=== PATIENT | female | born 1945 | race Caucasian/White ===

== ENCOUNTER 2019-11-16 08:41 | Emergency (ER) | payer MEDICARE, SELFPAY | END 2019-11-16 09:25 | disposition home or self-care (01) | PROVIDERS: Emergency Provider Physician Assistant; Family Provider Nurse Practitioner; Visit Provider Physician Assistant | DX: H57.11 Ocular pain, right eye (principal); J44.9 Chronic obstructive pulmonary disease, unspecified; I25.10 Atherosclerotic heart disease of native coronary artery without angina pectoris; I10 Essential (primary) hypertension; H35.30 Unspecified macular degeneration; Z88.5 Allergy status to narcotic agent; Z87.891 Personal history of nicotine dependence | CPT/HCPCS: 99283 ==

== ENCOUNTER 2019-12-08 15:38 | Outpatient (CLI) | payer MEDICARE, SELFPAY ==
--- NOTE | 2019-12-08 | CT_ITS ---
WS: [id number] CT ABDOMEN AND PELVIS NONCONTRAST HISTORY: COLON CA/DIARRHEA/ABD PAIN TECHNIQUE: Imaging performed through the abdomen and pelvis. Coronal and sagittal reformats are submi tted. All CT scans at [facility] use at least one of these dose optimization techniques: automated exposure control; mA and/or kV adjustment per patient size (includes targeted exams where d ose is matched to clinical indication); or iterative reconstruction. DLP: 735.21 mGy.cm COMPARISON: 05/29/2016 Lower thorax: Subsegmental atelectasis at the lingula. No pulmonary nodules at the lung bases. Modera te size hiatal hernia contains oral contrast. Liver: Decreased attenuation throughout the liver. Similar to the prior study. Without IV contrast ca nnot exclude early metastatic lesions. No bile duct dilatation. Gallbladder: Prior cholecystectomy. Pancreas: Normal. Spleen: Normal size with granulomata. Adrenal glands: Normal. Right kidney: Mild perinephric stranding. No obstruction or mass. Left kidney: Mild perinephric stranding with no obstruction or mass. Moderate atherosclerosis abdominal aorta. Mild ectasia with no aneurysm. No free fluid, intraperitoneal air or significant lymphadenopathy. GI tract: Moderate fecal retention throughout the GI tract. Postsurgical clips near the rectosigmoid junction. No recurrent mass or obstruction. No adenopathy. The appendix is not definitely identified. Abdominal wall: Intact. Pelvis: No free fluid or adenopathy. Negative urinary bladder. Osseous structures: 3 mm anterolisthesis of L4. Degenerative scoliosis in the lumbar spine. Advanced degenerative disc disease at T12-L1. CT/CT abdomen pelvis wo con [id number] IMPRESSION: 1. No evidence for metastatic disease throughout the abdomen or pelvis. Sensit ivity of this examination is limited without IV contrast. 2. Mild heterogeneity within the liver is probably related to hepatic steatosi s. No discrete lesions are identified. For further evaluation follow-up liver u ltrasound may be helpful for additional evaluation. 3. Prior cholecystectomy. 4. Constipation.
[2019-12-08] MEDS: iohexol 350 mg/mL 100 mL Btl 20 ML IV (18:15)
== END 2019-12-08 15:39 | disposition home or self-care (01) ==
LOC: RAD 15:48
PROVIDERS: Family Provider Nurse Practitioner; PCP Nurse Practitioner Family; Visit Provider Nurse Practitioner Family
DX: C18.9 Malignant neoplasm of colon, unspecified (principal); R19.7 Diarrhea, unspecified; R10.9 Unspecified abdominal pain; K59.00 Constipation, unspecified; Z90.49 Acquired absence of other specified parts of digestive tract
CPT/HCPCS: 74176

== ENCOUNTER 2020-01-20 08:45 | Outpatient (CLI) | payer MEDICARE, SELFPAY ==
--- NOTE | 2020-01-20 14:39 | ONC FU_ITS ---
Dr. Yeager follow up note Patient: Gladys Cannon Unit #: [id number]: 1945 Dicatated By: Angel Yeager M.D.Date of Visit:Jan 20, 2020 Onc Med Follow-up/Prog Note History of Present Illness: This is a 74-year-old woman with a history of adenocarcinoma of the rectosigmoid colon, stage IIIB (T1, N1, M0) She had presented with rectal bleeding and was diagnosed with stage IIIB, pT1, N1, M0 adenocarcinoma of the rectosigmoid colon in April of 2010, partially obstructing. She was started on neoadjuvant FOLFOX chemotherapy, followed by an attempted concurrent chemoradiation with infusional 5-FU on August 2010. She was not able to tolerate a concurrent regimen, and the chemotherapy was discontinued. The radiation required interruptions and was eventually completed in September of 2010. She then went on to completed 6 cycles of adjuvant FOLFOX chemotherapy. Her treatment was delivered in [place], under the care of Dr. Tovar. Her last followup there was in June of 2011; she had no evidence of disease. The follow up colonoscopy in April of 2011 was unremarkable, and repeat colonoscopy was suggested in 3 years. She moved to [facility] and established care on 10/18/11. A re-staging CT of the chest abdomen and pelvis on 11/05/11 showed no evidence of metastatic disease. Her CEA measured 1.6. She has remained on surveillance protocol. Her other medical illnesses include hypertension, dyslipidemia, and coronary artery disease. She has had previous angioplasty/stent placement. She also is known to have obstructive sleep apnea, for which she is on CPAP. She does have a history of smoking up to a pack of cigarettes daily, but she has quit off and on. Her most recent surveillance colonoscopy was in January 2014. There were no abnormalities noted. Her surveillance CT scan in 2014 and again 2015 , showed no evidence of recurrence/progression. She underwent laparoscopic cholecystectomy in February 2016. Came for follow-up, denies any specific complaints now, no fever or chills, no nausea vomiting or diarrhea constipation but As per patient she developed left flank pain in mid November 2019, pain last 3 days and then resolve on its own, denies any melena or hematochezia denies any hematuria denies any jaundice denies any history of trauma denies any nausea vomiting underwent CT scan of abdomen pelvis on 12/08/2019 which showed no evidence of metastatic disease throughout the abdomen or pelvis. Sensitivity of examination is limited without IV contrast. Mild heterogeneity within the liver is probably related to hepatic steatosis no discrete lesions are identified and similar to the prior study done on 05/29/2016 but without IV contrast early metastatic disease cannot be ruled out. Medications: Albuterol Sulfate 1 puff(s) (of (2.5 mg/3ml) 0.083%) Nebulization solution Inhalation PRN, Aspirin 1 (81 mg) Tablet Oral daily, Ergocalciferol 50,000 Units (of 2000 Units) Tablet Oral daily, Eye Vitamins 1 Capsule Oral daily, Famotidine 1 Tablet (of 10 mg) Oral daily, hydroCHLOROthiazide 1 Tablet (of 25 mg) Oral daily, Losartan Potassium 1 Tablet (of 100 mg) Oral daily, Metoprolol Tartrate 1 (25 mg) Tablet Oral daily, Pantoprazole Sodium 1 Tablet (of 40 mg) Tablet, enteric coated Oral daily, Simvastatin 1 (40 mg) Tablet Oral daily, Sucralfate 1 Tablet (of 1 g) Oral daily, traMADol HCl 0.5 - 1 Tablet (of 50 mg) Oral daily PRN Allergies: codeine Review of Systems: Constitutional - Energy level is fair. Appetite is good and weight is stable. No fever, chills, hot flashes, or night sweats, ENMT - No sinus congestion/drainage. No mouth sores. No sore throat or difficulty swallowing, Hematologic/Lymphatic - Patient reports bruising easily, Respiratory - She has shortness of breath with exertion, no cough. No pleuritic pain or hemoptysis, Cardiovascular - No angina pain. No palpitations, Gastrointestinal - No nausea or vomiting. No heartburn or acid reflux. Patient reports alternating constipation and diarrhea. No blood in the stool or black stools, Genitourinary (F) - No dysuria or hematuria. No urinary frequency. No urgency or incontinence, Musculoskeletal - She has pain in her back at times, Integumentary - No chronic rashes, ulcerations or skin changes, Neurologic - No headache or dizziness. No numbness/paresthesias or other focal neurologic symptoms, Psychiatric - No anxiety or depression. No insomnia. Vital Signs: Performed on Jan 20, 2020 09:40 Height - 67.00 in Weight - 181.2 lbs (LOW) BSA - 1.94 sq.m BMI - 28.38 Temperature - 97.8 F (LOW) Pulse - 66 /min Respiration - 18 /min BP - 154/78 mm(hg) (HIGH) O2 Sat - 97 % Pain - 0 Performance Status: 0 - Fully active, able to carry on all predisease activities without restrictions. (ECOG) Physical Examination: ENMT - No oral exudates, ulcers, masses, thrush or mucositis. Oropharynx clear. Tongue normal, Hematologic/Lymphatic - No petechiae or purpura. No tender or palpable lymph nodes in the cervical, supraclavicular, axillary or inguinal area, Respiratory - Lungs are clear to auscultation without rhonchi or wheezing, Abdomen - Non-tender, non-distended, Good bowel sounds. No guarding or rebound tenderness. No pulsatile masses, Extremities - no edema. Lab/Imaging: Most recent lab results are not available for this patient. Impression: 1. The patient has a history of adenocarcinoma of rectosigmoid colon, stage IIIB (pT1, N1, M0), diagnosed in April of 2010. She underwent neoadjuvant FOLFOX chemotherapy, followed by attempted concurrent chemoradiation which she was not able to tolerate. She did complete radiation therapy in September 2010, followed by adjuvant chemotherapy with FOLFOX, which she completed in December 2010. She has remained on observation since then, thus far with no evidence of recurrence. Her other medical illnesses include: 2. Hypertension. 3. Dyslipidemia. 4. Coronary artery disease. 5. Obstructive sleep apnea. 6. Nicotine dependence (cigarettes). 7. constipation ? anastamosis stricture or habitual Plan: Discussed with patient regarding her CT scan of abdomen pelvis done on 12/08/2019 which showed decreased attenuation throughout the liver. Similar to prior study done on 05/29/2016. Without IV contrast cannot exclude early metastatic disease. Patient has no signs symptoms suggestive of recurrence of disease except one episode left flank pain which resolved on its own within 3 days. No evidence of melena or hematochezia. Her CT scan shows decreased attenuation throughout the liver, which could be due to hepatic steatosis but radiologist could not exclude early metastatic disease as IV contrast was not used. At this point we'll consider CT PET scan to rule out recurrence of disease and the patient will return to clinic after CT PET scan with CBC CMP and CEA. Signed By: Angel Yeager M.D. <<Signature on File>>
== END 2020-01-20 08:46 | disposition home or self-care (01) ==
LOC: ONCMED 08:47
PROVIDERS: Family Provider Nurse Practitioner; PCP Nurse Practitioner Family; Visit Provider Internal Medicine Hematology & Oncology
DX: Z08 Encounter for follow-up examination after completed treatment for malignant neoplasm (principal); Z85.038 Personal history of other malignant neoplasm of large intestine; F17.210 Nicotine dependence, cigarettes, uncomplicated; I10 Essential (primary) hypertension; E78.5 Hyperlipidemia, unspecified; I25.10 Atherosclerotic heart disease of native coronary artery without angina pectoris; G47.33 Obstructive sleep apnea (adult) (pediatric); Z79.51 Long term (current) use of inhaled steroids; Z79.891 Long term (current) use of opiate analgesic; Z95.5 Presence of coronary angioplasty implant and graft; Z92.21 Personal history of antineoplastic chemotherapy; Z92.3 Personal history of irradiation
CPT/HCPCS: G0463

== ENCOUNTER 2020-02-15 10:30 | Outpatient (RCR) | payer MEDICARE, SELFPAY ==
[2020-02-15 18:24] LABS: Alanine Aminotransferase 11 U/L (0-33); Albumin Level 4.2 g/dL (3.5-5.2); Alkaline Phosphatase 134 IU/L (35-105); Anion Gap 18.5 (5-19); Aspartate Amino Transferase 19 U/L (0-32); Blood Urea Nitrogen 14 mg/dL (8-23); Carbon Dioxide 30 mmol/L (22-29); Chloride 97 mmol/L (98-107); Globulin 2.6 g/dL (1.3-4.6); Glucose 67 mg/dL (65-115); Osmolality Calculated 288 mOsm/kg (285-295); Potassium 3.5 mmol/L (3.5-5.1); Sodium 142 mmol/L (136-145); Total Bilirubin 0.3 mg/dL (0.15-1.2); Total Protein 6.8 g/dL (6.6-8.7)
[2020-02-15 18:26] LABS: Basophils % 0.3 %; Eosinophils # 0.3 10^3/uL (0.0-0.8); Eosinophils % 4.2 %; Hematocrit 37.3 % (37.0-47.0); Lymphocytes # 1.6 10^3/uL (0.8-4.8); Lymphocytes % 20.5 %; Mean Corpuscular HGB Conc 32.2 g/dL (30.0-36.0); Mean Corpuscular Volume 93.3 fL (81-99); Mean Platelet Volume 9.9 fL (7.4-10.4); Monocytes # 0.8 10^3/uL (0.2-0.9); Monocytes % 9.7 %; Neutrophils # 5.1 10^3/uL (1.8-7.7); Neutrophils % 64.9 %; Nucleated Red Blood Cells % 0 %; Platelet Count 335 10^3/cmm (130-400); Red Cell Distribution Width 11.9 % (12.1-15.1); White Blood Count 7.9 10^3/uL (4.0-10.0)
== END 2020-02-16 23:59 | disposition home or self-care (01) ==
LOC: ONCMED 10:30
PROVIDERS: Family Provider Nurse Practitioner; PCP Nurse Practitioner Family; Visit Provider Internal Medicine Hematology & Oncology
DX: C18.7 Malignant neoplasm of sigmoid colon (principal)
CPT/HCPCS: 36415; 80053; 85025

== ENCOUNTER 2020-02-16 08:46 | Outpatient (CLI) | payer MEDICARE, SELFPAY ==
--- NOTE | 2020-02-16 09:02 | CT_ITS ---
WS: [id number] CT ABDOMEN PELVIS TECHNIQUE: Contrast-enhanced CT of the abdomen and pelvis with coronal and sagittal reformatted image s. CLINICAL INFORMATION: MALIGNANT NEOPLASM OF SIGMOID COLON COMPARISON: None. DLP: 1129.[address] scans at [facility] use at least one of these dose optimization techniques: automat ed exposure control; mA and/or kV adjustment per patient size (includes targeted exams where dose is matched to clinical indication); or iterative reconstruction. FINDINGS: Diffuse fatty infiltration of the liver. Prior cholecystectomy. Normal portal vein and splenic vein. Small esophageal hiatal hernia. Lung bases are well aerated. Normal adrenal glands. Normal renal pare nchymal enhancement. No hydronephrosis. No obstructing renal or ureteral calculi. Mild fatty atrophy of the pancreas. Splenic granulomas. Normal caliber abdominal aorta. Aortic calcif ication. No evidence of small or large bowel obstruction. Fecal retention right colon. No abdominal o r pelvic lymphadenopathy. Surgical clips left groin. Slight anterolisthesis L4 on L5. No evidence of metastatic disease in the abdomen or pelvis. CT/CT abdomen pelvis w con* [id number] IMPRESSION: 1. No evidence of metastatic disease in the abdomen or pelvis. 2. No abdominal or pelvic lymphadenopathy. 3. Diffuse fatty infiltration of the liver. 4. Cholecystectomy. 5. Mild right colon and transverse colon constipation unchanged.
--- NOTE | 2020-02-16 09:02 | XR_ITS ---
WS: [id number] PROCEDURE: XR chest 2V* [id number] CLINICAL INFORMATION: FOLLOW UP/MALIGNANT NEOPLASM OF SIGMOID COLON COMPARISON: December 03, 2018 FINDINGS: Heart: Normal cardiac silhouette. Aortic calcification. Lungs: Chronic emphysematous changes. Calcified granuloma right lower lobe. No focal pneumonia. Bones: Mild thoracic curve convex right. XR/XR chest 2V* [id number] IMPRESSION: 1. Chronic emphysematous changes with prominent calcified granuloma right midl magalys. 2. No acute pulmonary infiltrates. 3. No focal pneumonia.
[2020-02-16] MEDS: iohexol 300 mg/mL 50 mL Btl PO (10:23)
[2020-02-16] MEDS: iodixanol 320 mg/mL 100mL Btl IV (10:55)
== END 2020-02-16 08:47 | disposition home or self-care (01) ==
LOC: RADWPI 08:50 → ONCMED 09:52
PROVIDERS: Family Provider Nurse Practitioner; PCP Nurse Practitioner Family; Visit Provider Internal Medicine Hematology & Oncology
DX: C18.7 Malignant neoplasm of sigmoid colon (principal); K76.0 Fatty (change of) liver, not elsewhere classified; Z90.49 Acquired absence of other specified parts of digestive tract
CPT/HCPCS: 36415; 71046; 74177; Q9967

== ENCOUNTER 2020-04-21 14:32 | Outpatient (CLI) | payer MEDICARE, SELFPAY ==
--- NOTE | 2020-04-21 14:44 | USCV_ITS ---
Gladys Cannon Age: 74 Gender: F : 1945 Exam Date: 04/21/2020 15:04 Ordering Phys: Randell Kwan APN Technologist: Mechelle Carlson Exam Location: [facility] [place] Indication: PAIN HISTORY: Lower extremity pain. PROCEDURES: Venous duplex imaging was performed in only the right lower extremity. The following venous structures were evaluated: common femoral vein, profunda vein, proximal portion of the greater saphenous vein, superficial femoral vein, and the popliteal vein. In addition, the posterior tibial and peroneal trunk were evaluated. Serial compression, augmentation maneuvers, and spectral Doppler flow evaluation were performed. FINDINGS: Normal 2-D Doppler and augmentation and compressibility throughout the lower extremity venous structures. Additional imaging through the proximal calf veins also reveals no thrombus. Limited evaluation of the greater saphenous vein is patent with no thrombus.. CONCLUSIONS No evidence of DVT in the above-mentioned identifiable veins. Dr Paula Hurst MD [facility] (Electronically Signed) Final Date: 21 April 2020 18:42 S
== END 2020-04-21 14:33 | disposition home or self-care (01) ==
LOC: RAD 14:36
PROVIDERS: Family Provider Nurse Practitioner; PCP Nurse Practitioner Family; Visit Provider Nurse Practitioner Family
DX: M79.604 Pain in right leg (principal)
CPT/HCPCS: 93971

== ENCOUNTER 2020-05-09 13:08 | Outpatient (CLI) | payer MEDICARE, SELFPAY ==
--- NOTE | 2020-05-09 13:13 | MR_ITS ---
WS: [id number] MRI RIGHT KNEE HISTORY: RT KNEE PAIN COMPARISON: None available. Anterior cruciate ligament: Intact. Posterior cruciate ligament: Intact. Medial collateral ligament: Intact. Posterior lateral corner structures: Intact. Medial menisci: Abnormal signal in the posterior horn. Horizontal signal does appear to contact the f ree edge. The anterior horn is intact. Lateral meniscus: Intact. Normal signal, size and shape. Extensor mechanism: Distal quadriceps tendon and patellar tendons are intact. Fluid and soft tissue: Moderate-sized suprapatellar effusion. There is mild soft tissue edema surroun ding the knee. No Zazueta's cyst. Increase fluid near the fibular head surrounding the popliteus tendon . Osseous and articular structures: Patellofemoral compartment: Normal. Medial compartment: Moderate narrowing of the medial compartment. Loss of cartilage over the weightbe aring surface of the femoral condyle. There is diffuse mild thinning of the cartilage. Lateral compartment: Moderate narrowing of the lateral compartment with loss of cartilage. There is a small amount of marrow edema involving the lateral tibial plateau with subchondral cystic change. MR/MR knee RT wo con* [id number] IMPRESSION: 1. Moderate internal derangement lateral compartment with loss of cartilage an d subchondral cystic changes. 2. Horizontal tear posterior horn medial meniscus. 3. Moderate internal degenerative changes in the medial compartment, to a less er extent in the lateral compartment. 4. Fluid along the popliteus tendon sheath near the fibular head. Tendinopathy versus ganglion. 5. Moderate suprapatellar effusion.
== END 2020-05-09 13:09 | disposition home or self-care (01) ==
LOC: RADSHAW 13:12
PROVIDERS: PCP Nurse Practitioner Family; Visit Provider Nurse Practitioner Family
DX: M19.90 Unspecified osteoarthritis, unspecified site (principal); S83.241A Other tear of medial meniscus, current injury, right knee, initial encounter; X58.XXXA Exposure to other specified factors, initial encounter; M25.461 Effusion, right knee
CPT/HCPCS: 73721

== ENCOUNTER → 2020-05-24 11:56 | Outpatient (BNVA) | payer MEDICARE, SELFPAY | PROVIDERS: PCP Nurse Practitioner Family; Referring Provider Nurse Practitioner Family; Visit Provider Orthopaedic Surgery | DX: M25.561 Pain in right knee (principal); M25.562 Pain in left knee | CPT/HCPCS: 73560; 73565 ==

== ENCOUNTER 2020-07-04 13:01 | Outpatient (CLI) | payer MEDICARE, SELFPAY ==
--- NOTE | 2020-07-04 13:09 | XR_ITS ---
WS: [id number] EXAM: XR lumbar spine 2-3V* [id number] DATE OF EXAMINATION: 07/04/2020, 1326 hours COMPARISON: Lumbar spine exam from 07/07/2018. HISTORY: 74 years old with low back pain especially when standing for the last week. No reported trauma. Histo ry of colon cancer. FINDINGS: Lower thoracic and lumbar vertebrae are of normal height. Multilevel degenerative spondylosis changes are demonstrated throughout the visualized portions of the lower thoracic and lumbar spine. Minimal anterolisthesis of L4 on L5. No fracture seen. Multilevel facet arthropathy changes are seen. No pars fracture noted. All pedicles are appreciated on the AP radiograph. Postsurgical clips in the right u pper quadrant from presumed prior cholecystectomy. Additional clips in the pelvis and in the left michael in from prior surgery. Aorta shows calcified plaque changes. No definite aneurysmal dilatation. XR/XR lumbar spine 2-3V* [id number] IMPRESSION: FINDINGS OF OSTEOARTHRITIS DESCRIBED. NO ACUTE ABNORMALITY. SUSPICION FOR PO SSIBLE UNDERLYING SPINAL CANAL STENOSIS L4-5 LEVEL.
== END 2020-07-04 13:02 | disposition home or self-care (01) ==
PROVIDERS: PCP Nurse Practitioner Family; Visit Provider Nurse Practitioner Family
DX: M54.9 Dorsalgia, unspecified (principal); M47.816 Spondylosis without myelopathy or radiculopathy, lumbar region
CPT/HCPCS: 72100